=== PATIENT | male | born 1965 | race Caucasian/White ===

== ENCOUNTER 2016-10-19 11:56 | Outpatient (CLI) | payer BC ==
--- NOTE | 2016-10-19 13:47 | RAD ---
LEF SHOULDER 3 VIEWS: Date: 10/19/16 HISTORY: Shoulder pain. FINDINGS: There are no signs of fracture or dislocation. No evidence of any significant arthritic change. IMPRESSION: Negative left shoulder. POS: [facility]
== END 2016-10-19 11:57 | disposition home or self-care (01) ==
LOC: MADLAB 11:56
PROVIDERS: ATTEND Obstetrics & Gynecology
DX: M25.512 Pain in left shoulder (principal)

== ENCOUNTER 2018-06-16 07:18 | Emergency (ER) | payer BC, SELFPAY ==
[2018-06-16] MEDS ORDERED: Cephalexin 500 MG CAP ONE (07:48)
== END 2018-06-16 08:13 | disposition home or self-care (01) ==
LOC: MADERS 07:18
DX: B37.2 Candidiasis of skin and nail (principal); L25.9 Unspecified contact dermatitis, unspecified cause; L03.112 Cellulitis of left axilla; E11.9 Type 2 diabetes mellitus without complications; I25.10 Atherosclerotic heart disease of native coronary artery without angina pectoris
CPT/HCPCS: 99283